=== PATIENT | male | born 1960 | race Caucasian/White ===

== ENCOUNTER → 2019-08-07 13:52 | Outpatient (BNVA) | payer MEDICARE, SELFPAY | PROVIDERS: PCP Family Medicine; Visit Provider Psychiatry & Neurology Psychiatry | DX: F33.42 Major depressive disorder, recurrent, in full remission (principal); R51 Headache | CPT/HCPCS: 99214 ==

== ENCOUNTER → 2019-11-10 07:26 | Outpatient (BNVA) | payer MEDICARE, SELFPAY | PROVIDERS: PCP Family Medicine; Visit Provider Psychiatry & Neurology Psychiatry | DX: F33.42 Major depressive disorder, recurrent, in full remission (principal); R51 Headache | CPT/HCPCS: 99214 ==